=== PATIENT | female | born 2000 | race Two or more races ===

== ENCOUNTER 2022-10-27 00:30 | Emergency (ER) | payer OTHER ==
[~2022-10-27] VITALS: Ht 154.9 cm; Wt 99.5 kg
[2022-10-27 01:34] LABS: Urine Bacteria FEW /hpf (None Seen); Urine Blood Negative /uL (Negative); Urine Specific Gravity 1.013 (1.001-1.035); Urine WBC 1 /hpf (0 - 5)
[2022-10-27] MEDS ORDERED: ONDANSETRON ODT 4 MG TAB PO ONE (03:30)
[2022-10-27] MEDS ORDERED: OXYCODONE W/ ACETAMINOPHEN 5/325MG TABLET PO ONE (05:45)
[2022-10-27] MEDS ORDERED: cefTRIAXone SOD 1,000 MG VL IM ONE (05:45)
[2022-10-27] MEDS ORDERED: NITR-87 PO (05:46)
[2022-10-27 06:21] VITALS: BP 124/70
== END 2022-10-27 06:23 | disposition home or self-care (01) ==
LOC: ER 00:35
DX: N39.0 Urinary tract infection, site not specified (principal); Z88.0 Allergy status to penicillin
CPT/HCPCS: 71045; 74176; 81001; 99285; Q0162